=== PATIENT | female | born 1960 | race Caucasian/White ===

== ENCOUNTER 2025-04-02 09:17 | Outpatient (CLI) | payer SELFPAY ==
--- NOTE | 2025-04-02 09:20 | MM_ITS ---
WS: [id number] Bilateral screening 3D tomosynthesis digital mammogram, 04/02/2025 9:27 AM Clinical Data: SCREENING Comparison: None. Findings: No spiculated masses or clustered calcifications are seen. There are no secondary signs of carcinoma. There is a 0.75 cm density in the anterior aspect of the right breast which has a smooth border and no associated calcifications. The left breast is normal. MM/MM scr BI tomosynthesis [id number] Impression: 1. Small anterior density in the retroareolar region measuring 0.75 cm. 2. Negative left breast. 3. Recommend compression CC and MLO view along with ML view of the right breast . Consider possible right breast ultrasound.. BIRADS: 0 - Incomplete: Need additional imaging evaluation FOLLOW UP: See Report DENSITY: The breasts are heterogeneously dense, which may obscure small masses. The CAD checker product design was used
== END 2025-04-02 09:18 | disposition home or self-care (01) ==
LOC: MOBLMAM 09:23
PROVIDERS: PCP Nurse Practitioner Primary Care; Visit Provider Nurse Practitioner Primary Care
DX: Z12.31 Encounter for screening mammogram for malignant neoplasm of breast (principal); R92.30 Dense breasts, unspecified
CPT/HCPCS: 77063; 77067